=== PATIENT | male | born 1990 | race Caucasian/White ===

== ENCOUNTER 2017-05-07 15:06 | Emergency (ER) | payer OTHER ==
--- NOTE | 2017-05-07 15:45 | UC ---
Abdominal Pain Male HPI - HPI Summary HPI Summary: Had a slip with opiate addition about 3 weeks ago--was injecting with someone he found out was Hep C positive--Patient is concerned as he now has 1 week of nausea and vomiting with fatigue---patient also reports sore throat for 1 week and constipation (which he gets from time to time) - History of Current Complaint Chief Complaint: UCGI Stated Complaint: NAUSEA, VOMITING Time Seen by Provider: 05/07/17 15:27 Hx Obtained From: Patient Onset/Duration: Sudden Onset, Lasting Weeks - 1, Still Present Timing: Constant Severity Initially: Mild Severity Currently: Mild Pain Intensity: 4 Pain Scale Used: 0-10 Numeric Location: Diffuse Radiates: No Character: Aching, Cramping Aggravating Factor(s): Food Alleviating Factor(s): Nothing Associated Signs And Symptoms: Positive: Decreased Appetite, Nausea, Vomiting - Allergies/Home Medications Allergies/Adverse Reactions: Allergies Allergy/AdvReac Type Severity Reaction Status Date / Time No Known Allergies Allergy Verified 05/07/17 15:25 Home Medications: Home Medications NK [No Home Medications Reported] 05/07/17 [History Confirmed 05/07/17] PMH/Surg Hx/FS Hx/Imm Hx Previously Healthy: Yes - Surgical History Surgical History: Yes Surgery Procedure, Year, and Place: eye - Family History Known Family History: Positive: None - Social History Occupation: Employed Full-time Lives: With Family Alcohol Use: None Substance Use Type: Heroin Substance Use Comment - Amount & Last Used: last used 3 weeks ago Smoking Status (MU): Heavy Every Day Tobacco Smoker Type: Cigarettes Amount Used/How Often: 7 cig per day Review of Systems Constitutional: Negative Skin: Negative Eyes: Negative ENT: Negative Respiratory: Negative Cardiovascular: Negative Gastrointestinal: Abdominal Pain, Vomiting, Nausea Genitourinary: Negative Motor: Negative Neurovascular: Negative Musculoskeletal: Negative Neurological: Negative Psychological: Negative Is Patient Immunocompromised?: No All Other Systems Reviewed And Are Negative: Yes Physical Exam Triage Information Reviewed: Yes Appearance: Well-Appearing, No Pain Distress, Well-Nourished Vital Signs: Initial Vital Signs Temp 98.7 F 05/07/17 15:18 Pulse 56 05/07/17 15:18 Resp 16 05/07/17 15:18 BP 137/69 05/07/17 15:18 Pulse Ox 100 05/07/17 15:18 Vital Signs Reviewed: Yes Eye Exam: Normal Eyes: Positive: Conjunctiva Clear ENT Exam: Normal ENT: Positive: Normal ENT inspection, Hearing grossly normal, Pharynx normal, TMs normal, Tonsillar swelling, Uvula midline. Negative: Nasal congestion, Trismus, Muffled voice, Hoarse voice, Dental tenderness, Sinus tenderness Dental Exam: Normal Neck exam: Normal Neck: Positive: Supple, Nontender, No Lymphadenopathy Respiratory Exam: Normal Respiratory: Positive: Chest non-tender, Lungs clear, Normal breath sounds, No respiratory distress, No accessory muscle use Cardiovascular Exam: Normal Cardiovascular: Positive: RRR, No Murmur, Pulses Normal, Brisk Capillary Refill Abdominal Exam: Normal Abdomen Description: Positive: No Organomegaly, Soft, Other: - diffuse discomfort, fullness in left and right lower quaderant. Negative: CVA Tenderness (R), CVA Tenderness (L), Distended, Guarding, Hepatomegaly, McBurney' s Point Tenderness, Peritoneal Signs, Pulsatile Mass, Splenomegaly Musculoskeletal Exam: Normal Musculoskeletal: Positive: Strength Intact, ROM Intact, No Edema Neurological Exam: Normal Neurological: Positive: Alert, Muscle Tone Normal Psychological Exam: Normal Skin Exam: Normal Diagnostics - Laboratory Diagnostic Studies Completed/Ordered: UA sg-1.015, RST (-) - Radiology No standard instances Xray Interpretation: Positive (See Comments) - stool in colon no pathology or abstructive pattern Radiology Interpretation Completed By: Radiologist Abd Pain Male Course/Dx - Course Course Of Treatment: lab studies, miralax, increase fluids, follow with pcp - Differential Dx/Clinical Impression Provider Diagnoses: acute nausea/vomiting, constipation, recent opiate slip Discharge - Discharge Plan Condition: Stable Disposition: HOME Patient Education Materials: Polyethylene Glycol 3350 (By mouth), Constipation (ED), High Fiber Diet (ED), Acute Nausea and Vomiting (ED) Referrals: Melida Biswas PA [Primary Care Provider] - 3 Days
--- NOTE | 2017-05-07 16:26 | RAD ---
INDICATION: Constipation and vomiting COMPARISON: None TECHNIQUE: Supine and upright views of the abdomen were obtained. FINDINGS: There is stool seen throughout the majority of the colon. There is gas and stool overlying the rectum. There is no pathologic dilatation of the colon. There is no evidence of free intraperitoneal gas. No grossly abnormal or pathologic appearing calcifications are noted. Visualized bones are within normal limits for the patient's age. IMPRESSION: The colon is mostly stool-filled but not pathologically dilated, and appearance that could be seen in the setting of constipation.
[2017-05-07 19:49] LABS: ABS Basophils 0 10^3/ul (0-0.2); ABS Eosinophils 0.3 10^3/ul (0-0.6); ABS Lymphocytes 2.2 10^3/ul (1.0-4.8); ABS Monocytes 0.7 10^3/ul (0-0.8); ABS Neutrophils 5.4 10^3/ul (1.5-7.7); ABS Nucleated RBC 0 10^3/ul; Eosinophil % 3.4 % (0-6); Hematocrit 50 % (42-52); Hemoglobin 17.3 g/dl (14.0-18.0); Lymphocyte % 25.3 % (25-47); Mean Corpuscular HGB Conc 34 g/dl (31-36); Mean Corpuscular Hemoglobin 31 pg (27-31); Mean Corpuscular Volume 90 fL (80-94); Mean Platelet Volume 8 um3 (7.4-10.4); Nucleated Red Blood Cells % 0.1; Platelet Count 219 10^3/ul (150-450); Red Blood Count 5.62 10^6/ul (4.0-5.4); Red Cell Distribution Width 13 % (10.5-15); White Blood Count 8.6 10^3/ul (3.5-10.8)
[2017-05-07 20:05] LABS: EGFR Non-African American 104.2 (>60)
--- NOTE | 2017-05-09 07:19 | UC ---
- Progress Note Progress Note: Positive Hep C antibody with elevated LFT's. Please call patient to let him know he may be infectious. More definitive testing is being done.
--- NOTE | 2017-05-12 07:14 | UC ---
- Progress Note Progress Note: elevated HCV RNA pt will follow up with his pcp for eval and tx and possible referral to GI
== END 2017-05-07 16:40 | disposition home or self-care (01) ==
LOC: UCCORT 15:06
DX: R76.8 Other specified abnormal immunological findings in serum (principal); R79.89 Other specified abnormal findings of blood chemistry; Z11.4 Encounter for screening for human immunodeficiency virus [HIV]; F17.210 Nicotine dependence, cigarettes, uncomplicated; R11.2 Nausea with vomiting, unspecified; K59.00 Constipation, unspecified; F11.90 Opioid use, unspecified, uncomplicated
CPT/HCPCS: 36415; 74019; 80053; 81003; 85025; 86703; 86706; 86803; 87340; 87522; 87651; 99201; G0463

== ENCOUNTER 2018-02-06 16:36 | Emergency (ER) | payer BC, OTHER ==
[2018-02-06 16:52] VITALS: BP 147/71
[2018-02-06] MEDS ORDERED: Albuterol/Ipratropium NEB.SOL* Albuterol 2.5 MG/Ipratropium 0.5 MG 3 ML INH ONE (17:02)
[2018-02-06] MEDS ORDERED: Albuterol HFA INHALER* 8 gm MDI INH ONE (17:46)
[2018-02-06] MEDS ORDERED: Azithromycin TAB* 250 MG PO ONE (17:47)
--- NOTE | 2018-02-13 12:46 | UC ---
Respiratory Complaint HPI - HPI Summary HPI Summary: over dosed on heroin 4 days [employer]---was not intubated but was hospitalized-no was has cough with chest discomfort - History of Current Complaint Chief Complaint: UCGeneralIllness Stated Complaint: COUGH/CONGESTION Time Seen by Provider: 02/06/18 16:37 Hx Obtained From: Patient Onset/Duration: Sudden Onset, Lasting Days, Still Present Timing: Constant Pain Intensity: 7 Pain Scale Used: 0-10 Numeric Character: Cough: Productive Alleviating Factors: Nothing Associated Signs And Symptoms: Positive: Chills, Pleuritic Chest Pain, URI - Allergies/Home Medications Allergies/Adverse Reactions: Allergies Allergy/AdvReac Type Severity Reaction Status Date / Time vancomycin Allergy Hives Verified 02/06/18 17:54 Home Medications: Home Medications Dm/Pseudoephed/Acetaminophen [Day-Time Cold-Flu Softgel] 1 each PO ONCE [History Confirmed 02/06/18] PMH/Surg Hx/FS Hx/Imm Hx Previously Healthy: No - opiate abuse disorder - Surgical History Surgical History: Yes Surgery Procedure, Year, and Place: eye - Family History Known Family History: Positive: None - Social History Occupation: Employed Part-time Lives: With Family Alcohol Use: None Substance Use Type: Heroin Substance Use Comment - Amount & Last Used: OD ON THURSDAY Smoking Status (MU): Heavy Every Day Tobacco Smoker Type: Cigarettes Amount Used/How Often: 7 cig per day Cessation Counseling: Counseled 3+Min - 10 Min Review of Systems All Other Systems Reviewed And Are Negative: Yes Constitutional: Positive: Chills, Fatigue Skin: Positive: Negative Eyes: Positive: Negative ENT: Positive: Negative Respiratory: Positive: Cough Cardiovascular: Positive: Negative Gastrointestinal: Positive: Negative Genitourinary: Positive: Negative Motor: Positive: Negative Neurovascular: Positive: Negative Musculoskeletal: Positive: Negative Neurological: Positive: Negative Psychological: Positive: Negative Is Patient Immunocompromised?: No Physical Exam Triage Information Reviewed: Yes Appearance: Well-Appearing, No Pain Distress, Well-Nourished Vital Signs: Initial Vital Signs Temp 100.0 F 02/06/18 16:47 Pulse 74 02/06/18 16:47 Resp 16 02/06/18 16:47 BP 147/71 02/06/18 16:47 Pulse Ox 98 02/06/18 16:47 Vital Signs Reviewed: Yes Eye Exam: Other Eyes: Positive: Other: - pupils pin point ENT Exam: Normal ENT: Positive: Normal ENT inspection, Hearing grossly normal, Pharynx normal, TMs normal, Uvula midline. Negative: Nasal congestion, Trismus, Muffled voice, Hoarse voice, Dental tenderness, Sinus tenderness Dental Exam: Normal Neck exam: Normal Neck: Positive: Supple, Nontender, No Lymphadenopathy Respiratory Exam: Normal Respiratory: Positive: Chest non-tender, Lungs clear, Normal breath sounds, No respiratory distress, No accessory muscle use Cardiovascular Exam: Normal Cardiovascular: Positive: RRR, No Murmur, Pulses Normal, Brisk Capillary Refill Musculoskeletal Exam: Normal Musculoskeletal: Positive: Strength Intact, ROM Intact, No Edema Neurological Exam: Normal Neurological: Positive: Alert, Muscle Tone Normal Psychological Exam: Normal Skin Exam: Normal UC Diagnostic Evaluation - Laboratory O2 Sat by Pulse Oximetry: 98 - Radiology Radiology Interpretation Completed By: ED Physician Summary of Radiographic Findings: no evidence of cardio pulmnary disease Respiratory Course/Dx - Course Course Of Treatment: increase fluids, continue otc medications for symptom relief, nictone cesasation infomation, person center support and education for opiate treatment and harm reduction--follow bp with pcp - Differential Dx/Diagnosis Provider Diagnosis: Nicotine dependence, Opiate dependence, continuous, Hypertension, Health education/counseling, Bronchitis Discharge - Sign-Out/Discharge Documenting (check all that apply): Patient Departure All imaging exams completed and their final reports reviewed: Yes - Discharge Plan Condition: Stable Disposition: HOME Prescriptions: Azithromycin TAB* [Zithromax TAB (Z-JACQUELINE) 250 mg #6 tabs] 250 mg PO DAILY #4 tab Naloxone Nasal [place]* [Narcan Nasal [place]] 4 mg NASAL ONCE PRN #2 nasal.spr PRN Reason: Narcotic Reversal Patient Education Materials: Acute Bronchitis (ED), Hypertension (ED), How to Use a Metered-Dose Inhaler and a Spacer (ED), Wheezing (ED) Referrals: Melida Biswas PA [Primary Care Provider] - 5 Days Additional Instructions: Follow with your [facility] treatment provider on Thursday! - Billing Disposition and Condition Condition: STABLE Disposition: Home - Attestation Statements Provider Attestation: Per institutional requirements, I have reviewed the chart, however, I was not consulted specifically or made aware of this patient by the midlevel provider. I did not personally evaluate, interact with , or disposition this patient.
== END 2018-02-06 18:01 | disposition home or self-care (01) ==
LOC: UCCORT 16:36
DX: J40 Bronchitis, not specified as acute or chronic (principal); I10 Essential (primary) hypertension; F11.20 Opioid dependence, uncomplicated; Z71.6 Tobacco abuse counseling; F17.210 Nicotine dependence, cigarettes, uncomplicated; Z71.89 Other specified counseling; Z88.1 Allergy status to other antibiotic agents
CPT/HCPCS: 71046; 99213; A9270-GY; G0463

== ENCOUNTER 2018-06-11 13:00 | Emergency (ER) | payer BC, OTHER ==
[2018-06-11 14:02] VITALS: BP 134/71
--- NOTE | 2018-06-11 14:30 | UC ---
General HPI - HPI Summary HPI Summary: ill just over a week. had diarrhea, cold sweats and bodyaches at onset plus some vomiting yesterday. the v/d has resolved. presents for ongoing headache, bodyaches, cold sweats and swollen - painful tonsils. - History of Current Complaint Chief Complaint: UCGeneralIllness Stated Complaint: DIARRHEA,EARS,FEVER,ACHY Time Seen by Provider: 06/11/18 13:58 Hx Obtained From: Patient Timing: Constant Pain Intensity: 6 Associated Signs & Symptoms: Negative: Abdominal Pain, Chest Pain, SOB - Allergy/Home Medications Allergies/Adverse Reactions: Allergies Allergy/AdvReac Type Severity Reaction Status Date / Time vancomycin Allergy Hives Verified 02/06/18 17:54 Home Medications: Home Medications Buprenorp/Nalox 4-1 MG FILM [Suboxone 4 mg-1 mg Sl Film] 1 each SL QPM 06/11/18 [History Confirmed 06/11/18] Buprenorphine HCl/Naloxone HCl [Suboxone 12 mg-3 mg Sl Film] 1 each SL QAM 06/11 [History Confirmed 06/11/18] Mirtazapine TAB* [Remeron TAB*] 7.5 mg PO BEDTIME 06/11/18 [History Confirmed ] Prazosin CAP* [Minipress CAP*] 2 mg PO DAILY 06/11/18 [History Confirmed ] PMH/Surg Hx/FS Hx/Imm Hx - Additional Past Medical History Additional PMH: recovery from substance abuse, ptsd - Surgical History Surgical History: Yes Surgery Procedure, Year, and Place: eye - Family History Known Family History: Positive: None - Social History Lives: With Family Alcohol Use: None Substance Use Type: None Substance Use Comment - Amount & Last Used: OD ON THURSDAY Smoking Status (MU): Light Every Day Tobacco Smoker Type: Cigarettes Amount Used/How Often: 1-3 cigarettes per day Review of Systems All Other Systems Reviewed And Are Negative: Yes Constitutional: Positive: Fever, Chills ENT: Positive: Sore Throat Musculoskeletal: Positive: Myalgia Neurological: Positive: Headache Physical Exam Triage Information Reviewed: Yes Appearance: Ill-Appearing - but non toxic Vital Signs: Initial Vital Signs Temp 99.6 F 06/11/18 13:52 Pulse 85 06/11/18 13:52 Resp 18 06/11/18 13:52 BP 134/71 04/12/19 13:52 Pulse Ox 100 06/11/18 13:52 Vital Signs Reviewed: Yes Eyes: Positive: Conjunctiva Clear ENT: Positive: Pharyngeal erythema - mild, TMs normal, Tonsillar swelling, Uvula midline. Negative: Nasal drainage, Tonsillar exudate, Trismus, Muffled voice, Hoarse voice Neck: Positive: Supple, Enlarged Nodes @ - peritonsilar Respiratory: Positive: Lungs clear, Normal breath sounds, No respiratory distress Cardiovascular: Positive: RRR, No Murmur Abdomen Description: Positive: Nontender, No Organomegaly, Soft Bowel Sounds: Positive: Present Musculoskeletal: Positive: ROM Intact Neurological: Positive: Alert Psychological: Positive: Age Appropriate Behavior Skin Exam: Normal Skin: Negative: Rashes Course/Dx - Course Course Of Treatment: DIAGNOSTICS=RAPID FLU AND STREP THROAT TESTING IS NEGATIVE. - Differential Dx - Multi-Symptom Differential Diagnoses: Other - NO TRISMUS, UVULAR SHIFT OR MUFFLED VOICE PLUS SPEECH IS FLUENT AND SWALLOWING SECRETIONS THUS NO CONCERN FOR ABSCESS. - Diagnoses Provider Diagnosis: Tonsillitis, Viral syndrome Discharge - Sign-Out/Discharge Documenting (check all that apply): Patient Departure All imaging exams completed and their final reports reviewed: No Studies - Discharge Plan Condition: Stable Disposition: HOME Patient Education Materials: Tonsillitis (ED), Viral Syndrome (ED) Referrals: Melida Biswas PA [Primary Care Provider] - Additional Instructions: FOLLOW UP WITH PRIMARY CARE IF NOT BETTER IN 3 DAYS OR SOONER IF WORSE. - Billing Disposition and Condition Condition: STABLE Disposition: Home
[2018-06-11 14:38] LABS: Influenza A Molecular NEGATIVE (Negative); Influenza B Molecular NEGATIVE (Negative)
[2018-06-11] MEDS ORDERED: Dexamethasone TAB* 4 MG PO ONE (14:40)
== END 2018-06-11 15:04 | disposition home or self-care (01) ==
LOC: UCCORT 13:00
DX: J03.90 Acute tonsillitis, unspecified (principal); B34.9 Viral infection, unspecified; R51 Headache; F43.10 Post-traumatic stress disorder, unspecified; F19.11 Other psychoactive substance abuse, in remission; F17.210 Nicotine dependence, cigarettes, uncomplicated; Z88.1 Allergy status to other antibiotic agents
CPT/HCPCS: 87651; 99212; G0463; J8540

== ENCOUNTER 2018-09-16 14:52 | Emergency (ER) | payer BC ==
[2018-09-16 15:28] VITALS: BP 133/73
--- NOTE | 2018-09-16 16:21 | UC ---
Lower Extremity/Ankle HPI - HPI Summary HPI Summary: Pt presents with c/o sudden onset of left foot pain that began while playing soccer yesterday. Pt states that he "stepped wrong" and felt a sudden onset of pain at the base of his left great toe. Pt states swelling and pain have worsened over the last 24 hours and he has applied ice and taken ibuprofen. - History of Current Complaint Chief Complaint: UCLowerExtremity Stated Complaint: L FOOT INJ Time Seen by Provider: 09/16/18 15:41 Hx Obtained From: Patient Onset/Duration: Sudden Onset, Lasting Days, Still Present Severity Initially: Moderate Severity Currently: Moderate Pain Intensity: 6 Aggravating Factor(s): Standing, Ambulation Alleviating Factor(s): Rest Able to Bear Weight: Yes - minimal - Risk Factors Gout Risk Factors: Male DVT Risk Factors: Negative Septic Arthritis Risk Factor: Negative - Allergies/Home Medications Allergies/Adverse Reactions: Allergies Allergy/AdvReac Type Severity Reaction Status Date / Time vancomycin Allergy Hives Verified 09/16/18 15:32 Home Medications: Home Medications Ibuprofen TAB* [Motrin TAB* 800 MG] 800 mg PO ONCE PRN 09/16/18 [History Confirmed 09/16/18] OLANzapine TAB* [Zyprexa 5 MG TAB*] 5 mg PO QPM 09/16/18 [History Confirmed ] PMH/Surg Hx/FS Hx/Imm Hx Previously Healthy: Yes - Surgical History Surgical History: Yes Surgery Procedure, Year, and Place: eye - Family History Known Family History: Positive: Cardiac Disease - Social History Occupation: Employed Full-time Lives: With Family Alcohol Use: None Substance Use Type: None Substance Use Comment - Amount & Last Used: OD ON THURSDAY Smoking Status (MU): Light Every Day Tobacco Smoker Type: Cigarettes Amount Used/How Often: 1-3 cigarettes per day Have You Smoked in the Last Year: Yes Review of Systems All Other Systems Reviewed And Are Negative: Yes Constitutional: Positive: Negative Skin: Positive: Bruising - base of left great toe Eyes: Positive: Negative ENT: Positive: Negative Respiratory: Positive: Negative Cardiovascular: Positive: Negative Gastrointestinal: Positive: Negative Genitourinary: Positive: Negative Motor: Positive: Decreased ROM - left great toe Neurovascular: Positive: Negative Musculoskeletal: Positive: Arthralgia, Decreased ROM, Edema Neurological: Positive: Negative Psychological: Positive: Negative Is Patient Immunocompromised?: No Physical Exam Triage Information Reviewed: Yes Appearance: Pain Distress - pain with ROM Vital Signs: Initial Vital Signs Temp 98.1 F 09/16/18 15:21 Pulse 63 09/16/18 15:21 Resp 17 09/16/18 15:21 BP 133/73 09/16/18 15:21 Pulse Ox 99 09/16/18 15:21 Vital Signs Reviewed: Yes Eye Exam: Normal ENT: Positive: Hearing grossly normal Dental Exam: Normal Neck exam: Normal Respiratory: Positive: No respiratory distress Musculoskeletal: Positive: ROM Limited @ - left great toe, Edema @ - base of left great toe Neurological Exam: Normal Psychological Exam: Normal Skin Exam: Other - multiple tattoos Diagnostics - Radiology No standard instances Radiology Interpretation Completed By: Radiologist - IMPRESSION: Degenerative changes of the first metatarsophalangeal joint. Lower Extremity Course/Dx - Differential Dx/Diagnosis Differential Diagnosis/HQI/PQRI: Bursitis, Contusion, Fracture (Closed), Sprain , Strain Provider Diagnosis: Injury of left great toe Discharge - Sign-Out/Discharge Documenting (check all that apply): Patient Departure All imaging exams completed and their final reports reviewed: Yes - Discharge Plan Condition: Stable Disposition: HOME Patient Education Materials: Swollen Joint (ED), R.I.C.E. Treatment (ED) Referrals: Irineo Sims MD [Medical Doctor] - If Needed Melida Biswas PA [Primary Care Provider] - If Needed - Billing Disposition and Condition Condition: STABLE Disposition: Home
[2018-09-16 19:21] LABS: HIV 4th Generation Negative (Negative)
== END 2018-09-16 16:40 | disposition home or self-care (01) ==
LOC: UCCORT 14:52
DX: S99.922A Unspecified injury of left foot, initial encounter (principal); X50.0XXA Overexertion from strenuous movement or load, initial encounter; Y93.66 Activity, soccer; Y92.9 Unspecified place or not applicable; F17.210 Nicotine dependence, cigarettes, uncomplicated
CPT/HCPCS: 36415; 87389; 99212; G0463

== ENCOUNTER 2018-11-09 19:31 | Emergency (ER) | payer BC ==
[2018-11-09 19:51] VITALS: BP 130/80
[2018-11-09] MEDS ORDERED: Acetaminophen TAB* 325 MG PO ONE (19:56)
[2018-11-09 20:21] LABS: Influenza A Molecular NEGATIVE (Negative); Influenza B Molecular NEGATIVE (Negative)
[2018-11-09] MEDS ORDERED: Penicillin VK TAB* 250 MG PO ONE (21:04)
[2018-11-09] MEDS ORDERED: Ibuprofen TAB* 600 MG PO ONE (21:05)
--- NOTE | 2018-11-09 21:12 | UC ---
FLU HPI - HPI Summary HPI Summary: Pt presents with c/o sudden onset of fever, ST, chills, body aches, fatigue, X 3 days. Pt is a recovering heroin addict and denies recent use of drugs. - History of Current Complaint Chief Complaint: UCGeneralIllness Stated Complaint: FLU LIKE SYMPTOMS Time Seen by Provider: 11/09/18 21:00 Hx Obtained From: Patient Onset/Duration: Sudden Onset, Lasting Days, Lasting Weeks, Still Present Severity Currently: Moderate Severity Initially: Moderate Pain Intensity: 7 Associated Signs & Symptoms: Positive: Fever, Myalgia, Sore Throat, Headache Related Hx: Possible Flu/Infectious Exposure - Risk Factors Influenza Risk Factors: Negative - Allergy/Home Medications Allergies/Adverse Reactions: Allergies Allergy/AdvReac Type Severity Reaction Status Date / Time vancomycin Allergy Hives Verified 11/09/18 19:51 Home Medications: Home Medications D-Methorphan/PE/Acetaminophen [Daytime Cold-Flu Relief Sftgl] 1 tab PO ONCE 12/18 [History Confirmed 11/09/18] PMH/Surg Hx/FS Hx/Imm Hx Previously Healthy: Yes - Surgical History Surgical History: Yes Surgery Procedure, Year, and Place: eye as a child - Family History Known Family History: Positive: Cardiac Disease - Social History Occupation: Employed Full-time Lives: With Family Alcohol Use: None Substance Use Type: None Substance Use Comment - Amount & Last Used: OD ON THURSDAY Smoking Status (MU): Former Smoker Type: Cigarettes Amount Used/How Often: 1-3 cigarettes per day Have You Smoked in the Last Year: Yes When Did the Patient Quit Smoking/Using Tobacco: 10/31/18 Review of Systems All Other Systems Reviewed And Are Negative: Yes Constitutional: Positive: Fever, Chills, Fatigue Skin: Positive: Negative Eyes: Positive: Negative ENT: Positive: Sore Throat Respiratory: Positive: Negative Cardiovascular: Positive: Negative Gastrointestinal: Positive: Negative Genitourinary: Positive: Negative Motor: Positive: Negative Neurovascular: Positive: Negative Musculoskeletal: Positive: Myalgia Neurological: Positive: Headache, Weakness Psychological: Positive: Negative Is Patient Immunocompromised?: No Physical Exam Triage Information Reviewed: Yes Appearance: Ill-Appearing Vital Signs: Initial Vital Signs Temp 103.9 F 11/09/18 19:46 Pulse 95 11/09/18 19:46 Resp 16 11/09/18 19:46 BP 130/80 09/10/19 19:46 Pulse Ox 96 11/09/18 19:46 Vital Signs Reviewed: Yes Eye Exam: Normal ENT: Positive: Pharyngeal erythema, Tonsillar swelling Dental Exam: Normal - missing teeth Neck exam: Normal Neck: Positive: Supple, Nontender Respiratory Exam: Normal Respiratory: Positive: Normal breath sounds Cardiovascular Exam: Normal Musculoskeletal Exam: Normal Neurological Exam: Normal Psychological Exam: Normal Skin Exam: Normal Flu Course/Dx - Differential Dx/Diagnosis Differential Diagnosis/HQI/PQRI: Influenza, Upper Respiratory Infection, Other - fever unknown origin Provider Diagnosis: Tonsillitis, Fever Discharge ED - Sign-Out/Discharge Documenting (check all that apply): Patient Departure All imaging exams completed and their final reports reviewed: No Studies - Discharge Plan Condition: Stable Disposition: HOME Referrals: Melida Biswas PA [Primary Care Provider] - If Needed - Billing Disposition and Condition Condition: STABLE Disposition: Home
== END 2018-11-09 21:22 | disposition home or self-care (01) ==
LOC: UCCORT 19:31
DX: J03.90 Acute tonsillitis, unspecified (principal); R50.9 Fever, unspecified; Z87.891 Personal history of nicotine dependence
CPT/HCPCS: 99213; A9270-GY; G0463

== ENCOUNTER 2018-11-17 17:09 | Emergency (ER) | payer BC ==
[2018-11-17] MEDS ORDERED: Albuterol 2.5 MG/3 ML NEB.SOL* (0.083%) INH ONE (17:45)
[2018-11-17 18:02] VITALS: BP 111/59
--- NOTE | 2018-11-17 18:04 | UC ---
Respiratory Complaint HPI - HPI Summary HPI Summary: 28-year-old male comes in with a chief complaint of upper respiratory tract infection symptoms for more than a week that have been worsening. He has been on penicillin without improvement. Is feeling worse he's feeling more short of breath. Does feel congested in his chest. - History of Current Complaint Chief Complaint: UCGeneralIllness Stated Complaint: RECHECK-CONGESTION Time Seen by Provider: 11/17/18 17:42 Pain Intensity: 6 - Allergies/Home Medications Allergies/Adverse Reactions: Allergies Allergy/AdvReac Type Severity Reaction Status Date / Time vancomycin Allergy Hives Verified 11/17/18 17:36 Home Medications: Home Medications Ibuprofen TAB* [Advil TAB*] 4 tab PO ONCE 11/17/18 [History Confirmed 11/17/18] PMH/Surg Hx/FS Hx/Imm Hx Previously Healthy: Yes - Surgical History Surgical History: Yes Surgery Procedure, Year, and Place: eye as a child - Family History Known Family History: Positive: Cardiac Disease - Social History Alcohol Use: None Substance Use Type: None Substance Use Comment - Amount & Last Used: OD ON THURSDAY Smoking Status (MU): Former Smoker Type: Cigarettes Amount Used/How Often: 1-3 cigarettes per day Have You Smoked in the Last Year: Yes When Did the Patient Quit Smoking/Using Tobacco: 10/31/18 Review of Systems All Other Systems Reviewed And Are Negative: Yes Constitutional: Positive: Fever, Other - SEE HPI Skin: Positive: Negative Eyes: Positive: Negative ENT: Positive: Nasal Discharge, Sinus Congestion Respiratory: Positive: Shortness Of Breath, Other - SEE HPI Cardiovascular: Positive: Negative Gastrointestinal: Positive: Negative Motor: Positive: Negative Neurovascular: Positive: Negative Musculoskeletal: Positive: Negative Neurological: Positive: Negative Psychological: Positive: Negative Is Patient Immunocompromised?: No Physical Exam Triage Information Reviewed: Yes Appearance: No Pain Distress, Well-Nourished, Ill-Appearing - MILD/MODERATE ILL APPEARANCE Vital Signs: Initial Vital Signs Temp 103.9 F 11/17/18 17:25 Pulse 102 11/17/18 17:25 Resp 18 11/17/18 17:25 BP 126/72 11/17/18 17:25 Pulse Ox 85 11/17/18 17:25 Vital Signs Reviewed: Yes Eye Exam: Normal Eyes: Positive: Conjunctiva Clear ENT: Positive: Nasal congestion, Nasal drainage Neck: Positive: Supple Respiratory: Positive: No respiratory distress, Rhonchi Cardiovascular: Positive: Tachycardia Musculoskeletal: Positive: Strength Intact, ROM Intact Neurological: Positive: Alert, Muscle Tone Normal Psychological: Positive: Normal Response To Family, Age Appropriate Behavior Skin Exam: Normal Respiratory Course/Dx - Course Course Of Treatment: Patient is hypoxic in clinic. IV was placed put on oxygen write him up over 90 % he was given albuterol nebulizer and transported to [facility] by ambulance. - Differential Dx/Diagnosis Provider Diagnosis: Fever, Hypoxia, Lower respiratory infection Discharge ED - Sign-Out/Discharge Documenting (check all that apply): Patient Departure All imaging exams completed and their final reports reviewed: No Studies - Discharge Plan Condition: Stable Disposition: TRANS HIGHER LVL OF CARE FAC Referrals: Melida Bisaws PA [Primary Care Provider] - - Billing Disposition and Condition Condition: STABLE Disposition: Trans Higher Lvl of Care Fac
== END 2018-11-17 18:03 | disposition short-term general hospital (02) ==
LOC: UCCORT 17:09
DX: J22 Unspecified acute lower respiratory infection (principal); Z87.891 Personal history of nicotine dependence
CPT/HCPCS: 99213; G0463